=== PATIENT | female | born 2000 | race African-American/Black ===

== ENCOUNTER 2024-11-03 03:44 | Emergency (ER) | payer OTHER, MEDICAID, SELFPAY ==
[2024-11-03] VITALS (9 sets, daily range): BP systolic 118–134; BP diastolic 64–82; PULSE 71; RESP 20; TEMP 36.8; O2SAT 96–100
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
[2024-11-03] MEDS: HYDROcodone/acetaminophen (*CRX) 5-325 MG TABLET 1 TAB PO (04:02)
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
[2024-11-03] MEDS: KETOROLAC 10 MG TABLET PO (04:38)
== END 2024-11-03 04:59 | disposition home or self-care (01) ==
LOC: ANHED 04:49
PROVIDERS: Emergency Provider Emergency Medicine
DX: S63.501A Unspecified sprain of right wrist, initial encounter (principal); V49.40XA Driver injured in collision with unspecified motor vehicles in traffic accident, initial encounter
CPT/HCPCS: 73110; 73130; 99283; A9270